=== PATIENT | male | born 1995 | race Two or more races ===

== ENCOUNTER 2022-11-06 08:54 | Outpatient (AMB) | payer OTHER, SELFPAY ==
[2022-11-06 09:22] VITALS: BP 110/60; PULSE 70; TEMP 36.6; O2SAT 99; BMI 21.5
--- NOTE | 2022-11-06 09:22 | AM.OFFWIN_ITS ---
Intake Vital Signs 11/06/22 09:22 Height 6 ft 2 in Weight 167 lb 6 oz BMI 21.5 BP 110/60 Blood Pressure Location Rt brachial Position Sitting Pulse 70 Pulse Source Pulse Oximeter Temp 97.9 F Temp Source Temporal Artery Scan Pulse Oximetry (%) 99 Oxygen Delivery Method Room Air Intake Visit Reasons: EP, Abdominal Pain, Nausea Intake Note: Pt is here c/o not being able to keep down any food. Pt states he has been vomitting for four days. Patient Tobacco Use Status: Never used Tobacco Allergies No Known Allergies [No Known Allergies*] Allergy (Unverified 12/10/19 19:42) Do you need a note to return to daycare/school/sports/work: Yes HPI EP, Abdominal Pain, Nausea HPI Details 27-year-old male patient presents today with vomiting for the last 4 days. He reports diarrhea for the 1st 2 of these days, which has since resolved. Patient denies any fever, chills, dizziness or abdominal pain. he reports some cramping prior to vomiting, which has been occurring following eating. Vomitus is undigested food. No blood noted. He reports his roommate had diarrhea last week but no vomiting. He reports normal voiding and BM at this time. [facility] Social History Patient Tobacco Use Status: Never used Tobacco Review of Systems Const All systems reviewed & are unremarkable except as noted in HPI and below Physical Exam Vital Signs: Last Vital Signs Temp 97.9 F 11/06/22 09:22 Pulse 70 11/06/22 09:22 BP 110/60 11/06/22 09:22 Pulse Ox 99 11/06/22 09:22 Oxygen Delivery Method Room Air 11/06/22 09:22 BMI result Body Mass Index 21.5 Const General: cooperative, healthy appearing, comfortable and no acute distress Resp Effort & Inspection: normal respiratory effort and able to speak in complete sentences Auscultation: clear to auscultation bilaterally Cardio Jugular venous distension: no JVD Palpation: normal PMI Rate: regular rate Rhythm: regular rhythm GI Other: nontender Inspection: Yes normal to inspection Palpation (GI): Soft to palpation and No hepatosplenomegaly present Auscultation: normal bowel sounds Skin General skin exam: no rashes or lesions noted Extrem General: Yes capillary refill normal Psych Appearance: grossly normal Mental Status: mental status grossly normal Speech and movement: Normal speech and movement present Assessment & Plan Assessment & Plan (1) Nausea and vomiting: Code(s): R11.2 - Nausea with vomiting, unspecified Qualifiers: Vomiting type: unspecified Qualified Code(s): R11.2 - Nausea with vomiting, unspecified Plan: Reviewed with patient the likely viral/self-limiting nature of illness. I will prescribe him some Zofran for the nausea. We reviewed indications, use, possible side effects of this. We reviewed a bland diet, and advancing this as tolerated. If he develops any abdominal pain, fever/chills, or new symptoms, he should return to the clinic or go to the ED for evaluation. He agrees to plan. Work note provided. Medications: New ondansetron HCl 4 mg PO Q8H PRN 12 tabs 0RF nausea and vomiting 4 days R11.2 - Nausea with vomiting, unspecified Coding Level of Care Code Est Pt Level 3 (19929) Diagnoses Nausea and vomiting R11.2 Vomiting type: unspecified
== END 2022-11-06 09:55 | disposition home or self-care (01) ==
PROVIDERS: PCP Internal Medicine; Visit Provider Nurse Practitioner Family
DX: R11.2 Nausea with vomiting, unspecified (principal)
CPT/HCPCS: 99213

== ENCOUNTER 2023-06-20 06:10 | Emergency (ER) | payer OTHER, SELFPAY ==
[2023-06-20 06:21] VITALS: BP 116/74; PULSE 78; RESP 16; TEMP 36.7; O2SAT 96; BMI 21.0
[2023-06-20 07:50] LABS: MANUAL DIFF FLAG NO
[2023-06-20 07:55] LABS: Basophils Absolute Auto 0.1 X10*3/uL (0.0-0.2); Basophils Percent Auto 1.4 % (0-2); Eosinophils Absolute Auto 0.5 X10*3/uL (0.0-0.4); Eosinophils Percent Auto 6.5 % (0-4); Hematocrit 46.3 % (42.0-52.0); Hemoglobin 15.6 g/dl (14.0-18.0); Imm Gran Abs Auto 0.03 X10*3/uL (0.00-0.03); Imm Gran Pct Auto 0.4 % (0.0-0.4); Lymphocytes Absolute Auto 1.8 X10*3/uL (1.2-4.9); Lymphocytes Percent Auto 24.8 % (20-40); Mean Corpuscular HGB Conc 33.7 g/dl (31.0-36.0); Mean Corpuscular Hemoglobin 31.8 pg (27.0-33.0); Mean Corpuscular Volume 94.3 fL (80.0-98.0); Mean Platelet Volume 9.6 fL (9.4-12.4); Monocytes Absolute Auto 0.5 X10*3/uL (0.1-1.2); Monocytes Percent Auto 6.5 % (2-11); Neutrophils Absolute Auto 4.3 x10*3/uL (2.0-8.3); Neutrophils Percent Auto 60.4 % (45-73); Platelet Count 241 X10*3/uL (160-400); Red Blood Count 4.91 X10*6/uL (4.60-5.80); White Blood Count 7.2 X10*3/uL (4.8-10.8)
[2023-06-20 08:06] LABS: Alanine Aminotransferase 23 U/L (0-40); Albumin Level 4.4 g/dL (3.5-5.0); Alkaline Phosphatase 65 U/L (39-117); Anion Gap 9 (12-20); Aspartate Amino Transferase 19 U/L (5-37); Bilirubin Total 0.5 mg/dL (0.0-1.0); Blood Urea Nitrogen 12 mg/dL (9-16); Calcium 9.3 mg/dL (8.4-10.2); Carbon Dioxide 29 mmol/L (22-29); Chloride 107 mmol/L (96-108); Creatinine Clr Calc Pharmacy 132.4; Estimated Glomerular Filt Rate > 60; Glucose Random 103 mg/dL (60-115); Lipase 18 U/L (8-78); Potassium 3.7 mmol/L (3.3-5.1); Sodium 141 mmol/L (135-145)
[2023-06-20 08:19] LABS: COVID-19 Test Negative (Negative); IDNOW Serial# 152EDE1D; IDNOW Serial# 9DB6401D; Influenza A Negative (Negative); Influenza B2 Negative (Negative)
--- NOTE | 2023-06-20 08:28 | ED_ITS ---
HPI - Nausea/Vomiting/Diarrhea General Chief complaint: Nausea/Vomiting/Diarrhea Stated complaint: Vomiting/Diarrhea Time Seen by Provider: 06/20/23 08:28 Source: patient Mode of arrival: ambulatory Limitations: no limitations History of Present Illness HPI Narrative: 28year-old male presents to the ER for evaluation of nausea, vomiting, diarrhea that started at 02:00 today. Patient reports waking up at 02:00 with nausea, upset stomach and for 5 episodes of nonbilious, nonbloody vomiting. He also had several episodes of loose watery stools. No blood. His last episode of vomiting was around 05:00 today. He feels his symptoms may be due to eating taco velasco last night around 08:00 o'clock he had a burrito and quesadilla. He lives alone, no one else with similar symptoms. He denies any fevers, chills, shortness of breath, URI symptoms. MD elicited complaint: nausea, vomiting and diarrhea Onset (ago): hour(s) Description of vomiting: food contents Description of diarrhea: watery and semi-solid Associated nausea: Yes Associated abdominal pain: Yes Location of pain: epigastric Pain consistency: now resolved Severity: mild Quality: cramping and aching Exacerbating factors: eating Relieving factors: none Context: possible food poisoning Associated symptoms: loss of appetite and nausea/vomiting Related Data Previous Rx's Medication Instructions Recorded ondansetron HCl 4 mg tablet 4 mg PO Q8H PRN nausea and 11/06/22 vomiting 4 days #12 tabs ondansetron 4 mg disintegrating 4 mg PO DAILY PRN nausea and 06/20/23 tablet vomiting #10 tabs Allergies Allergy/AdvReac Type Severity Reaction Status Date / Time No Known Allergies Allergy Verified 06/20/23 06:20 [No Known Allergies*] Review of Systems 2 Review of Systems: Yes all other systems are reviewed and are negative Gastrointestinal: Gastrointestinal: Reports nausea PMFSH Social History Social History Patient Tobacco Use Status: Never used Tobacco Physical Exam 2 Vital Signs: Vital Signs: Last Vital Signs Temp 98.0 F 06/20/23 06:21 Pulse 78 06/20/23 06:21 Resp 16 06/20/23 06:21 BP 116/74 06/20/23 06:21 Pulse Ox 96 06/20/23 06:21 O2 Del Method Room Air 06/20/23 06:21 BMI result Body Mass Index 21.0 Appearance: Alert. Oriented X3. No acute distress. Head: normocephalic, atraumatic. Eyes: Pupils equal, round and reactive to light. ENT: Pharynx normal. No tonsillar swelling or exudate. Neck: Normal inspection. Neck supple. CVS: Normal heart rate and rhythm. Pulses normal. Respiratory: No respiratory distress. Breath sounds normal. Abdomen: Soft and nontender. +BS x4 Skin: Skin warm and dry. Normal skin color. Normal skin turgor. No rashes. Extremities: No lower extremity edema. No joint swelling. Neuro/psych: Oriented X 3. No motor deficit. No sensory deficit. CN II-XII intact. Normal speech and cognition. Course Reevaluation(s) Reevaluation #1: tolerating PO. feels better. stable for d/c Time: 08:38 Medical Decision Making Medical Decision Making [facility] Narrative: 28 yo otherwise healthy male presenting with N/V/D after eating taco velasco last night. symptoms resolved x3 hours. now tolerating PO. labs reviewed and are unremarkable. abd exam benign without tenderness, low clinical suspicion for appendicitis or cholecystitis. No blood in his stool, less likely colitis. stable for d/c home with p.r.n. Zofran and supportive care. Return precautions were discussed. All questions were answered. Differential Diagnosis Differential Diagnoses: The differential diagnosis associated with the presentation includes Viral gastroenteritis, bacterial gastroenteritis, food poisoning, pancreatitis, cholecystitis, appendicitis, colitis Admission/Observation Consideration of admission/observation: Escalation of care including admission/observation considered Considered observation in this patient with recurrent episodes of vomiting and diarrhea however condition improved Lab Data [facility] Lab Attestation statement: I reviewed the patient's lab results. No leukocytosis or major metabolic derangement suggest dehydration 06/20/23 07:39 06/20/23 07:39 Labs: Lab Results 06/20/23 Range/Units 07:39 WBC 7.2 (4.8-10.8) X10*3/uL RBC 4.91 (4.60-5.80) X10*6/uL Hgb 15.6 (14.0-18.0) g/dl Hct 46.3 (42.0-52.0) % MCV 94.3 (80.0-98.0) fL MCH 31.8 (27.0-33.0) pg MCHC 33.7 (31.0-36.0) g/dl RDW 12.0 (11.0-16.0) % Plt Count 241 (160-400) X10*3/uL MPV 9.6 (9.4-12.4) fL Immature Gran % (Auto) 0.4 (0.0-0.4) % Neut % (Auto) 60.4 (45-73) % Lymph % (Auto) 24.8 (20-40) % [place] % (Auto) 6.5 (2-11) % Eos % (Auto) 6.5 H (0-4) % Baso % (Auto) 1.4 (0-2) % Lymph # (Auto) 1.8 (1.2-4.9) X10*3/uL [place] # (Auto) 0.5 (0.1-1.2) X10*3/uL Eos # (Auto) 0.5 H (0.0-0.4) X10*3/uL Baso # (Auto) 0.1 (0.0-0.2) X10*3/uL Abs Immat Gran (auto) 0.03 (0.00-0.03) X10*3/uL Absolute Neuts (auto) 4.3 (2.0-8.3) x10*3/uL Absolute Nucleated RBC 0.000 (0.0-0.012) X10*3/uL Nucleated RBC % (auto) 0.0 (0.0-0.2) /100WBC Sodium 141 (135-145) mmol/L Potassium 3.7 (3.3-5.1) mmol/L Chloride 107 (96-108) mmol/L Carbon Dioxide 29 (22-29) mmol/L Anion Gap 9 L (12-20) BUN 12 (9-16) mg/dL Creatinine 0.87 (0.5-1.4) mg/dL Estim Creat Clear Calc 132.4 Estimated GFR > 60 Random Glucose 103 (60-115) mg/dL Calcium 9.3 (8.4-10.2) mg/dL Total Bilirubin 0.5 (0.0-1.0) mg/dL AST 19 (5-37) U/L ALT 23 (0-40) U/L Alkaline Phosphatase 65 (39-117) U/L Total Protein 7.0 (6.5-8.0) g/dL Albumin 4.4 (3.5-5.0) g/dL Lipase 18 (8-78) U/L COVID-19 (JANETTE) Negative (Negative) COVID-19 Clin Com See Note Influenza Type A (CORWIN) Negative (Negative) Influenza Type B ([facility]WIN) Negative (Negative) Influenza A & B Note See Note External Record Review External record reviewed: Office record Tests considered The following testing was considered but not selected: CT scan of the abdomen considered however his abdominal exam is benign. Prescription Management I considered prescription management with: Antibiotic Critical Care Time Critical Care Time Critical Care Time: No Discharge Plan Discharge Clinical Impression: Gastroenteritis Patient Disposition: Home, Self-Care Instructions: Gastroenteritis (DC) Additional Instructions: You lab workup today was unremarkable. You tested negative for COVID and Flu. You most likely have a viral GI bug also known as gastroenteritis. Treatment is supportive care, symptoms usually resolve on their own in 48-72 hours. Recommend rest and plenty of oral hydration. Stick to a bland diet like soup and toast while you are not feeling well. Take the prescribed medication as needed for nausea. Recommend over the counter Pepto Bismol or Imodium for upset stomach and diarrhea. Follow up with your doctor as needed. If you develop new or worsening symptoms call 911 or come back to the ER for further evaluation. Prescriptions: New ondansetron 4 mg tablet,disintegrating 4 mg PO DAILY PRN (Reason: nausea and vomiting) Qty: 10 0RF No Action ondansetron HCl 4 mg tablet 4 mg PO Q8H PRN (Reason: nausea and vomiting) 4 Days Qty: 12 0RF Stand Alone Forms: Work/School Release
[2023-06-20 08:50] VITALS: BP 107/79; PULSE 63; RESP 20; TEMP 36.4; O2SAT 99
[2023-06-20 08:53] VITALS: BP 107/79; PULSE 63; RESP 20; TEMP 36.4; O2SAT 99
== END 2023-06-20 08:53 | disposition home or self-care (01) ==
PROVIDERS: Emergency Provider Emergency Medicine
DX: K52.9 Noninfective gastroenteritis and colitis, unspecified (principal); Z11.52 Encounter for screening for COVID-19
CPT/HCPCS: 80053; 83690; 85025; 87502; 87635; 99283

== ENCOUNTER 2023-09-21 12:05 | Emergency (ER) | payer SELFPAY ==
--- NOTE | ~2023-09-21 | CT_ITS ---
EXAMINATION: CT ABDOMEN AND PELVIS WITHOUT CONTRAST CLINICAL INFORMATION: Abdominal pain, leukocytosis, persistent vomiting COMPARISON: None available. TECHNIQUE: Multidetector volumetric imaging was performed from the superior aspect of the liver through the pubic symphysis. Sagittal and coronal reformatted images were obtained on the technologist's workstation. This CT examination was performed using dose optimization techniques as appropriate, variously including the following: *Automated exposure control *Adjustment of mA and/or kV according to patient size (this includes techniques or standardized protocols for targeted exams where dose is matched to indication/reason for exam; i.e. extremities or head) *Use of iterative reconstruction technique DLP: 351 mGy-cm FINDINGS: LUNG BASES: The visualized lung bases are unremarkable. LIVER, GALLBLADDER, AND BILIARY TREE: The liver is normal in size, shape, and attenuation. No focal hepatic lesion or biliary ductal dilatation is present. The gallbladder is unremarkable with no evidence of radiopaque gallstones, gallbladder wall thickening, or obvious pericholecystic inflammatory changes. PANCREAS: Unremarkable. SPLEEN: Unremarkable. ADRENAL GLANDS: Unremarkable. KIDNEYS AND URETERS: The kidneys are normal in size, shape, and attenuation. No hydronephrosis, hydroureter, or calculi seen. No perinephric stranding. BLADDER: Unremarkable. GASTROINTESTINAL TRACT: The large and small bowel are normal in caliber. The stomach and duodenum appear normal. The appendix appears normal with no surrounding inflammatory change. ABDOMINAL WALL: No significant hernia is appreciated. LYMPH NODES: Normal. VASCULAR: Unremarkable. PELVIC VISCERA: Unremarkable. OSSEOUS STRUCTURES: Unremarkable. CT/CT abdomen pelvis wo IV con IMPRESSION: No acute intra-abdominal or pelvic process. Fleischner guidelines were followed.
[2023-09-21 12:07] VITALS: BP 142/77; PULSE 91; RESP 16; TEMP 37; O2SAT 99; BMI 20.6
--- NOTE | 2023-09-21 12:08 | ED_ITS ---
HPI - General Adult General Chief complaint: ETOH/Substance Use Stated complaint: vomiting, ETOH Time Seen by Provider: 09/21/23 12:37 Source: patient Mode of arrival: ambulatory Limitations: no limitations History of Present Illness ED Provider: DR. Osborn HPI narrative: 28-year-old male came in for evaluation of abdominal pain and persistent nausea with vomiting since last night. Patient admitted to drinking alcohol occasionally drank last night heavy liquor at his friend's birthday and eat outside [facility], no other sick contacts, no recent travel, no recent use of antibiotic. Declined any prior intra-abdominal surgery, last bowel movement was last night described as loose stool. Patient presented with multiple episodes of nonbloody vomiting. No fever, no chills. Related Data Previous Rx's ?Medication ?Instructions ?Recorded ondansetron HCl 4 mg tablet 4 mg PO Q8H PRN nausea and 11/06/22 vomiting 4 days #12 tabs ondansetron 4 mg disintegrating 4 mg PO DAILY PRN nausea and 06/20/23 tablet vomiting #10 tabs omeprazole magnesium 20 mg 20 mg PO DAILY #14 tabs 09/21/23 tablet,delayed release (Prilosec OTC) ondansetron 4 mg disintegrating 4 mg PO Q8-12H PRN nausea and 09/21/23 tablet vomiting #7 tabs Allergies Allergy/AdvReac Type Severity Reaction Status Date / Time No Known Allergies Allergy Verified 09/21/23 12:09 [No Known Allergies*] Review of Systems 2 Review of Systems: All other systems are reviewed and are negative Constitutional: Reports as per HPI and Reports no additional constitutional complaints Eyes: Reports as per HPI and Reports no additional eye complaints Reports system reviewed and no additional complaints, except as documented Cardiovascular: Reports as per HPI and Reports no additional cardiovascular complaints Respiratory: Reports as per HPI and Reports no additional respiratory complaints Gastrointestinal: Reports as per HPI and Reports no additional gastrointestinal complaints Genitourinary: Reports no additional female genitourinary complaints Musculoskeletal: Reports no additional musculoskeletal complaints Skin/Breast: Reports system reviewed and no additional complaints, except as docu Psychiatric: Reports no additional psychiatric complaints Endocrine: Reports no additional endocrine complaints Hematologic/Lymphatic: Reports no additional hematologic/lymphatic complaints Allergic/Immunologic: Reports no additional allergic/immunologic complaints Reports system reviewed and no additional complaints, except as documented and Reports Abnormal speech present COUNT INCLUDES THE [facility] Social History Social History Alcohol intake: current Alcohol type: hard liquor Patient Tobacco Use Status: Never used Tobacco Use of substances other than those prescribed or required for medical reasons: No Advance Directives: No Do you have a plan to hurt others: No Plan Physical Exam ED Vital Signs: Vital Signs - 24 hr 09/21/23 12:07 09/21/23 12:30 Temperature 98.6 F 98.0 F Pulse Rate 91 70 Respiratory Rate 16 19 Blood Pressure 142/77 H 123/73 Pulse Oximetry 99 98 Oxygen Delivery Method Room Air Room Air BMI result Body Mass Index 20.6 Vital signs have been reviewed and appear to be correct. Blood pressure elevated. Heart rate normal. Respiratory rate normal. Temperature normal. Oxygen saturation normal. Appearance: Alert. Oriented X3. No acute distress. Head: Normal external exam. Normocephalic. Atraumatic. No Laurent signs noted. No raccoon eyes noted Eyes: PERRLA. EOMI. Conjunctiva and sclera normal. Eyelids normal. ENT: TM's Normal. Pharynx normal. Uvula midline. Moist mucous membranes. No trismus noted. No drooling noted. No muffled voice noted. Neck: Normal inspection. Neck supple. FROM. No adenopathy. Thyroid Normal. No meningeal signs. No neck mass noted. CVS: Normal heart rate and rhythm. Heart sound normal. No murmurs noted. Pulses normal throughout. Respiratory: No respiratory distress. Painless inspiration. Breath sounds normal. No wheezes/rales/rhonchi noted. Chest nontender. No accessory muscle usage noted or decreased air movement noted. Abdomen: Soft, epigastric tenderness, no guarding, no rebound tenderness.. Bowel sounds normal in all 4 quadrants. No distention noted. No organomegaly noted. No visible injury noted. Back: No CVA tenderness. Full range of motion noted. Skin: Skin warm and dry. Normal skin color. Normal skin turgor. No rashes/lesions/lacerations noted. Extremities: No lower extremity edema. Extremities exhibit normal range of motion. Extremities nontender. Neuro: Oriented X 3. Cranial nerve exam: II-XII are grossly intact No motor deficit. No sensory deficit. Reflexes normal. Course Course Course Narrative: This is a Rapid Medical Examination (RME) performed by Hector Gates PA-C in triage. Full HPI, ROS, assessment and treatment plan per primary provider in the Main ED. 28 yo male here for eval of headache, nausea, vomiting, and epigastric pain since last night. reports drinking a large amount of scotch while at his friend birthday green party last night. cannot quantify the amount of etoh. Reports consuming etoh one time every 3-4 months. no hx of etoh abuse or withdrawal. ttp of epigastric region. Plan: labs, UA, ethanol, drug screen Reevaluation(s) Reevaluation #1: 28-year-old male came in after multiple episodes of vomiting after drinking alcohol and eating pizza, received IV hydration and Pepcid with Maalox and Zofran. Labs reveals leukocytosis likely secondary to alcoholic gastritis and vomiting. Reevaluation #2: Patient in bed eating chicken sandwich was brought by his girlfriend, complaining of no abdominal pain or nausea or vomiting, CT of the abdomen pelvis is unremarkable. Repeat labs ensure correction of anion gap. Time: 15:57 Medications Administered Discontinued Medications Generic Name Dose Route Start Last Admin Trade Name Freq PRN Reason Stop Dose Admin Al Hydroxide/Mg Hydroxide 30 ml 09/21/23 12:41 09/21/23 14:17 Magnesium Hydrox/Alum Hydrox 30 Ml Oral.Susp PO 09/21/23 12:42 30 ml ONCE ONE Administration Famotidine 20 mg 09/21/23 12:41 09/21/23 14:16 Famotidine/Pf 20 Mg/2 Ml Vial IVPUSH 09/21/23 12:42 20 mg ONCE ONE Administration Sodium Chloride 1,000 mls @ 999 mls/hr 09/21/23 12:42 09/21/23 15:25 Ns IV 09/21/23 13:42 Infused .Q1H1M ONE Infusion Sodium Chloride 1,000 mls @ 999 mls/hr 09/21/23 13:24 09/21/23 15:40 Ns IV 09/21/23 14:24 999 mls/hr .Q1H1M ONE Administration Ondansetron HCl 4 mg 09/21/23 12:41 09/21/23 14:17 Ondansetron Hcl 4 Mg/2 Ml Vial IVPUSH 09/21/23 12:42 4 mg ONCE ONE Administration Medical Decision Making Differential Diagnosis Differential Diagnoses: The differential diagnosis associated with the presentation includes (Acute gastritis, gastroenteritis, food poisoning, alcoholic gastritis, perforated viscus, appendicitis, pancreatitis, colitis, diverticulitis, dehydration, electrolyte derangement, severe anemia.) Admission/Observation Consideration of admission/observation: Escalation of care including admission/observation considered Lab Data [facility] Lab Attestation statement: I reviewed the patient's lab results. 09/21/23 12:18 09/21/23 12:18 Labs: Lab Results 09/21/23 Range/Units 12:18 WBC 18.6 H (4.8-10.8) X10*3/uL RBC 5.29 (4.60-5.80) X10*6/uL Hgb 16.7 (14.0-18.0) g/dl Hct 48.2 (42.0-52.0) % MCV 91.1 (80.0-98.0) fL MCH 31.6 (27.0-33.0) pg MCHC 34.6 (31.0-36.0) g/dl RDW 11.9 (11.0-16.0) % Plt Count 278 (160-400) X10*3/uL MPV 9.1 L (9.4-12.4) fL Immature Gran % (Auto) 0.7 H (0.0-0.4) % Neut % (Auto) 89.2 H (45-73) % Lymph % (Auto) 6.8 L (20-40) % [place] % (Auto) 2.6 (2-11) % Eos % (Auto) 0.3 (0-4) % Baso % (Auto) 0.4 (0-2) % Lymph # (Auto) 1.3 (1.2-4.9) X10*3/uL [place] # (Auto) 0.5 (0.1-1.2) X10*3/uL Eos # (Auto) 0.1 (0.0-0.4) X10*3/uL Baso # (Auto) 0.1 (0.0-0.2) X10*3/uL Abs Immat Gran (auto) 0.13 H (0.00-0.03) X10*3/uL Absolute Neuts (auto) 16.6 H (2.0-8.3) x10*3/uL Absolute Nucleated RBC 0.000 (0.0-0.012) X10*3/uL Nucleated RBC % (auto) 0.0 (0.0-0.2) /100WBC Sodium 147 H (135-145) mmol/L Potassium 3.9 (3.3-5.1) mmol/L Chloride 105 (96-108) mmol/L Carbon Dioxide 19 L (22-29) mmol/L Anion Gap 27 H (12-20) BUN 16 (9-16) mg/dL Creatinine 0.96 (0.5-1.4) mg/dL Estim Creat Clear Calc 117.7 Estimated GFR > 60 Random Glucose 75 (60-115) mg/dL Calcium 9.8 (8.4-10.2) mg/dL Magnesium 2.0 (1.6-2.6) mg/dL Total Bilirubin 1.1 H (0.0-1.0) mg/dL AST 26 (5-37) U/L ALT 27 (0-40) U/L Alkaline Phosphatase 78 (39-117) U/L Total Protein 8.1 H (6.5-8.0) g/dL Albumin 5.0 (3.5-5.0) g/dL Lipase 8 (8-78) U/L Ethyl Alcohol 26 mg/dL Discharge Plan Discharge Clinical Impression: Acute alcoholic gastritis, Intractable vomiting Patient Disposition: Home, Self-Care Instructions: Gastritis (ED) Prescriptions: New ondansetron 4 mg tablet,disintegrating 4 mg PO Q8-12H PRN (Reason: nausea and vomiting) Qty: 7 0RF omeprazole magnesium [Prilosec OTC] 20 mg tablet,delayed release (DR/EC) 20 mg PO DAILY Qty: 14 0RF No Action ondansetron 4 mg tablet,disintegrating 4 mg PO DAILY PRN (Reason: nausea and vomiting) Qty: 10 0RF ondansetron HCl 4 mg tablet 4 mg PO Q8H PRN (Reason: nausea and vomiting) 4 Days Qty: 12 0RF Print Language: Urdu
[2023-09-21 12:24] LABS: MANUAL DIFF FLAG NO
[2023-09-21 12:25] LABS: Basophils Absolute Auto 0.1 X10*3/uL (0.0-0.2); Basophils Percent Auto 0.4 % (0-2); Eosinophils Absolute Auto 0.1 X10*3/uL (0.0-0.4); Eosinophils Percent Auto 0.3 % (0-4); Hematocrit 48.2 % (42.0-52.0); Hemoglobin 16.7 g/dl (14.0-18.0); Imm Gran Abs Auto 0.13 X10*3/uL (0.00-0.03); Imm Gran Pct Auto 0.7 % (0.0-0.4); Lymphocytes Absolute Auto 1.3 X10*3/uL (1.2-4.9); Lymphocytes Percent Auto 6.8 % (20-40); Mean Corpuscular HGB Conc 34.6 g/dl (31.0-36.0); Mean Corpuscular Hemoglobin 31.6 pg (27.0-33.0); Mean Corpuscular Volume 91.1 fL (80.0-98.0); Mean Platelet Volume 9.1 fL (9.4-12.4); Monocytes Absolute Auto 0.5 X10*3/uL (0.1-1.2); Monocytes Percent Auto 2.6 % (2-11); Neutrophils Absolute Auto 16.6 x10*3/uL (2.0-8.3); Neutrophils Percent Auto 89.2 % (45-73); Platelet Count 278 X10*3/uL (160-400); Red Blood Count 5.29 X10*6/uL (4.60-5.80); Red Cell Distribution Width 11.9 % (11.0-16.0); White Blood Count 18.6 X10*3/uL (4.8-10.8)
[2023-09-21 12:30] VITALS: BP 123/73; PULSE 70; RESP 19; TEMP 36.7; O2SAT 98
[2023-09-21 13:03] LABS: Alanine Aminotransferase 27 U/L (0-40); Alkaline Phosphatase 78 U/L (39-117); Anion Gap 27 (12-20); Aspartate Amino Transferase 26 U/L (5-37); Bilirubin Total 1.1 mg/dL (0.0-1.0); Blood Urea Nitrogen 16 mg/dL (9-16); Calcium 9.8 mg/dL (8.4-10.2); Carbon Dioxide 19 mmol/L (22-29); Chloride 105 mmol/L (96-108); Creatinine Clr Calc Pharmacy 117.7; Estimated Glomerular Filt Rate > 60; Ethanol 26 mg/dL; Glucose Random 75 mg/dL (60-115); Lipase 8 U/L (8-78); Potassium 3.9 mmol/L (3.3-5.1); Sodium 147 mmol/L (135-145); Total Protein 8.1 g/dL (6.5-8.0)
[2023-09-21] MEDS: 0.9 % Sodium Chloride 1,000 ML 999 ML IV ×2 (14:16→15:40)
[2023-09-21] MEDS: Famotidine/PF 20 MG/2 ML VIAL IVPUSH (14:16)
[2023-09-21] MEDS: Magnesium Hydrox/Alum Hydrox 30 ML ORAL.SUSP PO (14:17)
[2023-09-21] MEDS: ondansetron HCL 4 MG/2 ML VIAL IVPUSH (14:17)
[2023-09-21 16:12] VITALS: BP 120/62; PULSE 96; RESP 18; TEMP 36.8; O2SAT 99
[2023-09-21 16:31] LABS: MANUAL DIFF FLAG NO
[2023-09-21 16:33] LABS: Basophils Percent Auto 0.2 % (0-2); Eosinophils Absolute Auto 0.1 X10*3/uL (0.0-0.4); Eosinophils Percent Auto 0.3 % (0-4); Hematocrit 44.7 % (42.0-52.0); Hemoglobin 15.5 g/dl (14.0-18.0); Imm Gran Abs Auto 0.08 X10*3/uL (0.00-0.03); Imm Gran Pct Auto 0.5 % (0.0-0.4); Lymphocytes Absolute Auto 0.9 X10*3/uL (1.2-4.9); Lymphocytes Percent Auto 5.9 % (20-40); Mean Corpuscular HGB Conc 34.7 g/dl (31.0-36.0); Mean Corpuscular Hemoglobin 31.6 pg (27.0-33.0); Mean Corpuscular Volume 91.2 fL (80.0-98.0); Mean Platelet Volume 9.2 fL (9.4-12.4); Monocytes Absolute Auto 0.5 X10*3/uL (0.1-1.2); Monocytes Percent Auto 3.5 % (2-11); Neutrophils Absolute Auto 13.9 x10*3/uL (2.0-8.3); Neutrophils Percent Auto 89.6 % (45-73); Platelet Count 273 X10*3/uL (160-400); Red Cell Distribution Width 11.9 % (11.0-16.0); White Blood Count 15.5 X10*3/uL (4.8-10.8)
[2023-09-21 16:34] LABS: Appearance Urine Clear; Color Urine Yellow; Glucose Urine UA Negative (Negative); Leukocyte Esterase Urine Negative (Negative); Nitrite Urine Negative (Negative); Specific Gravity - Urine 1.025 (1.005-1.025); Urine Blood Negative (Negative); Urine Ketones 40 mg/dL (Negative); Urine Protein Trace mg/dL (Neg-Trace)
[2023-09-21 16:44] LABS: Amphetamine Screen Urine Not Detected (Not Detect); Barbiturates, Urine Not Detected (Not Detect); Benzodiazepines Screen Urine Not Detected (Not Detect); Buprenorphine Scr Not Detected (Not Detect); Cannabinoid Screen Urine POSITIVE (Not Detect); Cocaine Screen Urine Not Detected (Not Detect); Fentanyl, urine Not Detected (Not Detect); Methadone Screen, Urine Not Detected (Not Detect); Opiate Screen Urine Not Detected (Not Detect); Oxycodone Screen Urine Not Detected (Not Detect); Phencyclidine Screen Urine Not Detected (Not Detect)
[2023-09-21 16:54] LABS: Anion Gap 14 (12-20); Blood Urea Nitrogen 16 mg/dL (9-16); Calcium 9.2 mg/dL (8.4-10.2); Calcium 9.3 mg/dL (8.4-10.2); Carbon Dioxide 25 mmol/L (22-29); Chloride 107 mmol/L (96-108); Chloride 108 mmol/L (96-108); Creatinine Clr Calc Pharmacy 126.9; Creatinine Clr Calc Pharmacy 128.4; Estimated Glomerular Filt Rate > 60; Glucose Random 154 mg/dL (60-115); Potassium 4.1 mmol/L (3.3-5.1); Potassium 4.3 mmol/L (3.3-5.1); Sodium 142 mmol/L (135-145); Sodium 143 mmol/L (135-145)
[2023-09-21 18:22] VITALS: BP 131/73; PULSE 91; RESP 16; TEMP 36.6; O2SAT 98
[2023-09-21 19:10] VITALS: BP 00/00; PULSE 0; RESP 0; TEMP -17.7; TEMP 0; O2SAT 0
== END 2023-09-21 19:11 | disposition home or self-care (01) ==
PROVIDERS: Physician Assistant Medical; Emergency Provider Emergency Medicine
DX: K29.20 Alcoholic gastritis without bleeding (principal); R11.2 Nausea with vomiting, unspecified; R10.13 Epigastric pain
CPT/HCPCS: 36415; 74176; 80048; 80053; 80307; 81003; 83690; 83735; 85025; 96361; 96374; 96375; 99284; J2405

== ENCOUNTER 2025-03-13 09:58 | Emergency (ER) | payer MEDICAID, SELFPAY ==
--- NOTE | ~2025-03-13 | XR_ITS ---
CLINICAL HISTORY: cough 2 view chest x-ray. Comparison: None Findings: The lungs are adequately expanded. No focal consolidation. No effusion or pneumothorax. Cardiac and mediastinal contours are within normal limits. No acute osseous abnormality Impression: No acute process. This document has been electronically signed by: Jd Calixto MD on 03/13/2025 11:52:38
[2025-03-13 10:08] VITALS: BP 127/80; PULSE 91; RESP 18; TEMP 36.3; O2SAT 97; BMI 22.2
[2025-03-13 10:33] LABS: Strep A Nucleic Acid Negative (Negative)
[2025-03-13 11:01] LABS: Strep A Nucleic Acid Negative (Negative)
[2025-03-13 11:05] LABS: Resp Syncy Virus RNA Qual PCR NEGATIVE (Negative); SARS COV2 PCR INHOUSE NEGATIVE (Negative)
--- NOTE | 2025-03-13 11:29 | ED.GENADULT ---
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 no recent travel. No sick contacts. No reports of fever, body aches, neck pain, neck stiffness, chest pain, shortness of breath, leg swelling, leg pain, abdominal pain, vomiting or diarrhea. Related Data Previous Rx's ?Medication ?Instructions ?Recorded ondansetron HCl 4 mg tablet 4 mg PO Q8H PRN nausea and 11/06/22 vomiting 4 days #12 tabs ondansetron 4 mg disintegrating 4 mg PO DAILY PRN nausea and 06/20/23 tablet vomiting #10 tabs omeprazole magnesium 20 mg 20 mg PO DAILY #14 tabs 09/21/23 tablet,delayed release (Prilosec OTC) ondansetron 4 mg disintegrating 4 mg PO Q8-12H PRN nausea and 09/21/23 tablet vomiting #7 tabs albuterol sulfate 90 mcg/actuation 2 inh inhalation Q4H PRN shortness 03/13/25 breath activated powder inhaler of breath or wheezing #1 ea Allergies Allergy/AdvReac Type Severity Reaction Status Date / Time No Known Allergies (No Known Allergy Verified 03/13/25 10:11 Allergies*) Review of Systems Review of Systems: Yes all other systems are reviewed and are negative Constitutional: Constitutional: Reports no additional constitutional complaints, Denies body ache(s), Denies chills, Denies fever(s), Reports headache(s) and Denies weakness Eyes: Eyes: Reports no additional eye complaints and Denies change in vision ENT: Reports system reviewed and no additional complaints, except as documented, Denies dizziness, Reports headache(s), Denies nasal congestion, Denies nasal discharge, Denies neck pain and Reports sore throat Cardiovascular: Cardiovascular: Reports no additional cardiovascular complaints, Denies chest pain, Denies leg edema and Denies dyspnea Respiratory: Respiratory: Reports no additional respiratory complaints, Reports cough and Denies dyspnea Gastrointestinal: Gastrointestinal: Reports no additional gastrointestinal complaints, Denies abdominal pain, Denies diarrhea, Denies nausea and Denies vomiting Genitourinary: Genitourinary: Denies urinary incontinence Musculoskeletal: Musculoskeletal: Reports no additional musculoskeletal complaints, Denies back pain, Denies arthralgias, Denies joint swelling, Denies neck pain, Denies numbness and Denies tingling Integumentary/Breasts: Skin/Breast: Reports system reviewed and no additional complaints, except as docu and Denies rash Neurologic: Reports system reviewed and no additional complaints, except as documented, Denies Abnormal speech present, Denies dizziness, Reports headache(s), Denies numbness, Denies tingling and Denies weakness [facility] Past Medical History Attestation statement: The following information was validated with the patient. Source: old records reviewed and nursing notes reviewed Social History Social History Alcohol intake: current Alcohol type: hard liquor Patient Tobacco Use Status: Never used Tobacco Advance Directives: No Do you have a plan to hurt others: No Plan Physical Exam ED Vital Signs: Vital Signs - 24 hr 03/13/25 10:08 03/13/25 11:44 Temperature 97.4 F 97.4 F Pulse Rate 91 91 Respiratory Rate 18 18 Blood Pressure 127/80 127/80 Pulse Oximetry 97 97 Oxygen Delivery Method Room Air Room Air BMI result Body Mass Index 22.2 Const General: cooperative, healthy appearing, comfortable and no acute distress Orientation/consciousness: patient oriented x3 Limitations: no limitations HENMT Head: Yes normal to inspection Ears: hearing grossly normal bilaterally and TM's normal bilaterally General nose exam: Normal external nose present Face and sinus: Yes normal facial exam Mouth: Normal oral and palatal mucosa present Throat: Yes posterior oropharynx normal Eyes General: appearance normal, both eyes and all related structures Pupils: Equal, round and reactive pupils present Neck Neck: Yes normal visual inspection Chest Chest palpation & inspection: normal inspection of the chest Resp Effort & Inspection: normal respiratory effort Auscultation: clear to auscultation bilaterally Cardio Rate: regular rate Rhythm: regular rhythm Peripheral pulses: Peripheral pulses 2+ throughout GI Inspection: Yes normal to inspection Palpation (GI): Soft to palpation and nontender Auscultation: normal bowel sounds Back/Spine/Pelvis Thoracic/Lumbar Spine: thoracic and lumbar spine normal to inspection Skin General skin exam: no rashes or lesions noted Neuro General: patient oriented x3, no focal motor deficits and normal sensation to monofilament Cranial nerves: Yes Equal, round and reactive pupils present Cognition (Neuro): normal cognition Speech: No Abnormal speech present Gait exam (Neuro): Normal gait present Motor exam (neuro): 5/5 motor strength present throughout Extrem General: Yes normal to inspection Medical Decision Making Medical Decision Making MDM Narrative: 30yo male with history of asthma here with cough, headache, sore throat x 3 days. no recent travel. No sick contacts. No reports of fever, body aches, neck pain, neck stiffness, chest pain, shortness of breath, leg swelling, leg pain, abdominal pain, vomiting or diarrhea. Exam is benign VSS Influenza A positive I independently reviewed the CXR which shows no PNA. Explained to patient formal read is pending and I will call him if any abnormalities. Recommended supportive measures at home including Motrin and Tylenol as well as increased fluids. Discussed Tamiflu. Declined treatment. Reviewed worrisome signs and symptoms of when to return to the emergency room. Comfortable plan for discharge home. Differential Diagnosis Differential Diagnoses: The differential diagnosis associated with the presentation includes influenza, pneumonia, otitis media, strep pharyngitis, viral syndrome Admission/Observation Consideration of admission/observation: Escalation of care including admission/observation considered influenza A positive. no hypoxia or tachypnea requiring supplemental oxygen and or admission. Lab Data [facility] Lab Attestation statement: I reviewed the patient's lab results. Labs: Lab Results 03/13/25 03/13/25 03/13/25 Range/Units 10:20 10:21 10:50 Influenza Type A (PCR) POSITIVE A (Negative) Influenza Type B (PCR) NEGATIVE (Negative) RSV RNA Qual (PCR) NEGATIVE (Negative) SARS-CoV-2 RNA (RT-PCR) NEGATIVE (Negative) S. pyogenes GrpA CORWIN Negative Negative (Negative) Independent Interpretation I performed an independent interpretation of an: Plain X-Ray Interpretation: I independently viewed the x-ray and agree with the radiology report Radiology Impression Discussion of test interpretation with radiology: I have reviewed the radiologist's reading. Radiologist Impression: [address] [address] XRay Report Signed Patient: Jaime Daly MR#: [id number] : 1995 Acct:[id number] Age/Sex: 30 / M ADM Date: 03/13/25 Loc: HO.ED Attending Dr: Ordering Physician: Gonzalo Rivas MD Date of Service: 03/13/25 Procedure(s): XR chest 2V Accession Number(s): [id number] cc: Gonzalo Rivas MD; Physician,None ~ Reason for Exam: cough CLINICAL HISTORY: cough 2 view chest x-ray. Comparison: None Findings: The lungs are adequately expanded. No focal consolidation. No effusion or pneumothorax. Cardiac and mediastinal contours are within normal limits. No acute osseous abnormality Impression: No acute process. Prescription Management I considered prescription management with: Antiviral Discharge Plan Discharge Clinical Impression: Influenza A Patient Disposition: Home, Self-Care Instructions: Influenza (ED) Additional Instructions: Increase fluids, rest Alternate Motrin and Tylenol for pain or fever Use the inhaler 2 puffs every 4 hours as needed for cough or wheezing Prescriptions: New albuterol sulfate 90 mcg/actuation aerosol powdr breath activated 2 inh inhalation Q4H PRN (Reason: shortness of breath or wheezing) Qty: 1 0RF No Action ondansetron 4 mg tablet,disintegrating 4 mg PO DAILY PRN (Reason: nausea and vomiting) Qty: 10 0RF ondansetron 4 mg tablet,disintegrating 4 mg PO Q8-12H PRN (Reason: nausea and vomiting) Qty: 7 0RF omeprazole magnesium [Prilosec OTC] 20 mg tablet,delayed release (DR/EC) 20 mg PO DAILY Qty: 14 0RF ondansetron HCl 4 mg tablet 4 mg PO Q8H PRN (Reason: nausea and vomiting) 4 Days Qty: 12 0RF Referrals: Physician,None [Primary Care Provider, Medical] Interventions: ED Discharge Assessment Last Done: 03/13/25 11:44 Discharge Date/Time: 03/13/25 11:45 Print Language: Kinyarwanda
[2025-03-13 11:44] VITALS: BP 127/80; PULSE 91; RESP 18; TEMP 36.3; O2SAT 97
== END 2025-03-13 11:45 | disposition home or self-care (01) ==
LOC: HO.ED 11:44
PROVIDERS: Physician Assistant Medical; Emergency Provider Emergency Medicine
DX: J10.1 Influenza due to other identified influenza virus with other respiratory manifestations (principal); R05.9 Cough, unspecified; R51.9 Headache, unspecified; J45.909 Unspecified asthma, uncomplicated
CPT/HCPCS: 71046; 87637; 87651; 99282; 99283

== ENCOUNTER → 2025-03-13 10:12 | Outpatient (BNV) | payer MEDICAID, SELFPAY | PROVIDERS: Emergency Provider Emergency Medicine; Visit Provider Radiology Vascular & Interventional Radiology | DX: R05.9 Cough, unspecified (principal) | CPT/HCPCS: 71046 ==